=== PATIENT | male | born 1960 | race Caucasian/White ===

== ENCOUNTER 2021-09-09 10:54 | Outpatient (CLI) | payer OTHER, SELFPAY | END 2021-09-09 10:55 | disposition home or self-care (01) | LOC: ANHAUDIO 10:55 | PROVIDERS: PCP Family Medicine; Visit Provider Otolaryngology | DX: H90.3 Sensorineural hearing loss, bilateral (principal) | CPT/HCPCS: 92557; 92567 ==

== ENCOUNTER 2023-05-29 12:48 | Outpatient (CLI) | payer OTHER, SELFPAY ==
--- NOTE | ~2023-05-29 | XR_ITS ---
EXAMINATION: XR abdomen/kub 1V DATE: 05/29/2023 13:05 INDICATION: Gross hematuria. TECHNIQUE: A supine view of the abdomen on 2 radiographs was obtained. COMPARISON: CT abdomen and pelvis 05/29/2023 FINDINGS: There are no dilated loops of bowel. There are phleboliths in the pelvis. IMPRESSION: 1. No urolithiasis. Reviewed, dictated and finalized at location A. IMPRESSION: 1. No urolithiasis.
--- NOTE | ~2023-05-29 | CT_ITS ---
EXAMINATION: CT abdomen pelvis wo/w con DATE: 05/29/2023 13:36 INDICATION: Gross hematuria. TECHNIQUE: Computed tomography (CT) of the abdomen and pelvis was performed without and with intraven ous contrast using a total of 130 mL Omnipaque-350 intravenous contrast with a double-bolus technique for simultaneous opacification of the renal parenchyma and renal collecting system. Automated exposu re control and iterative reconstruction technique were employed. The dose-length product was 2025.85 mGy-cm. COMPARISON: Pelvis CT 02/12/2018 FINDINGS: The visualized portions of the lung bases demonstrate mild atelectasis. There is a pneumatocele in ri ght lower lobe. No pleural effusion. The heart size is normal. No pericardial effusion. There is a 5 mm cyst in the liver. The gallbladder, spleen, pancreas, and adrenal glands are normal. There are cys ts in the kidneys measuring up to 15 mm on the right. There is a 7 mm hemorrhagic cyst in left kidney . There is no urolithiasis. The ureters are well opacified and are normal. The bladder is normal. The prostate is moderately enlarged. There is a right inguinal hernia containing fat. There is diverticu losis of the colon without evidence of diverticulitis. The appendix is normal. There are no pathologi anna enlarged lymph nodes. There is no ascites. There is moderate thoracic spondylosis and mild lumb ar spondylosis. IMPRESSION: 1. No specific etiology for hematuria. Reviewed, dictated and finalized at location A.
[2023-05-29 13:19] LABS: Estimated Glomerular Filt Rate > 60
== END 2023-05-29 12:49 | disposition home or self-care (01) ==
PROVIDERS: PCP Family Medicine; Visit Provider Urology
DX: R31.0 Gross hematuria (principal)
CPT/HCPCS: 74018; 74178; Q9967

== ENCOUNTER 2024-04-29 14:38 | Outpatient (CLI) | payer MEDICARE, SELFPAY ==
[2024-04-29 18:38] LABS: Creatinine Urine 176.7 mg/dL
[2024-04-29 18:43] LABS: Microalbumin Urine Random 14.1 mg/L (0-16.7)
== END 2024-04-29 14:39 | disposition home or self-care (01) ==
LOC: ANHGOSHLAB 14:40
PROVIDERS: PCP Family Medicine; Visit Provider Nurse Practitioner Family
DX: E11.9 Type 2 diabetes mellitus without complications (principal)
CPT/HCPCS: 82043

== ENCOUNTER 2024-08-15 11:00 | Outpatient (CLI) | payer MEDICARE, SELFPAY ==
--- NOTE | ~2024-08-15 | MR_ITS ---
EXAMINATION: MR lumbar spine wo con DATE: 08/15/2024 11:57 INDICATION: Low back pain. Lumbar radiculopathy. TECHNIQUE: Magnetic resonance imaging (MRI) of the lumbar spine was performed without intravenous con trast. Sequences included sagittal T2-weighted FSE, sagittal T2-weighted FS FSE, sagittal T1-weighted FSE, and axial T2-weighted FSE. COMPARISON: None FINDINGS: Alignment is normal. Vertebral body heights are normal. Intervertebral disc heights are nor mal. The distal spinal cord signal intensity is normal. The conus medullaris is at L1-L2. The followi ng disc levels are specifically discussed: L1-L2: The disc does not extend beyond the endplate margin. There is mild bilateral facet joint osteo arthritis. There is no neural foraminal stenosis. There is no central canal stenosis. L2-L3: The disc is mildly bulging. There is mild bilateral facet joint osteoarthritis. There is mild right neural foraminal stenosis. There is mild central canal stenosis. L3-L4: The disc is mildly bulging. There is mild bilateral facet joint osteoarthritis. There is mild bilateral neural foraminal stenosis. There is no central canal stenosis. L4-L5: The disc is bulging and has an annular fissure. There is severe bilateral facet joint osteoart hritis. There is moderate bilateral neural foraminal stenosis. There is mild central canal stenosis. L5-S1: The disc is bulging and has an annular fissure. There is severe bilateral facet joint osteoart hritis. There is mild bilateral neural foraminal stenosis. There is mild central canal stenosis. IMPRESSION: 1. Moderate spondylosis at L4-L5 and mild spondylosis at other levels. Reviewed, dictated and finalized at location B.
== END 2024-08-15 11:01 | disposition home or self-care (01) ==
LOC: GOSHIMG 11:00
PROVIDERS: PCP Family Medicine; Visit Provider Nurse Practitioner Family
DX: M47.26 Other spondylosis with radiculopathy, lumbar region (principal)
CPT/HCPCS: 72148

== ENCOUNTER 2024-08-24 08:40 | Outpatient (CLI) | payer MEDICARE, SELFPAY ==
--- NOTE | ~2024-08-24 | MR_ITS ---
MR cervical spine wo con Ordering provider: Carlita Gil NP History: 64 years Male with . Radiculopathy, cervical region, weakness lower extremities . Comparison: None. Technique: MRI cervical spine without contrast. FINDINGS: CERVICAL SPINAL CORD/CRANIAL CERVICAL JUNCTION: Normal in signal and caliber. CERVICAL VERTEBRAL BODIES: Normal height and alignment. Normal marrow signal. DISK SPACES: Normal. C2-C3: No stenosis. C3-C4: No stenosis. Slight narrowing of the left intervertebral foramen. C4-C5: No stenosis. Narrowing of the left foramen with root compression. C5-C6: Mild spinal canal stenosis secondary to broad based disc bulge with central protrusion. Narro wing of the left intervertebral foramen with root compression. C6-C7: No stenosis. C7-T1: No stenosis. VISUALIZED PARASPINOUS SOFT TISSUES: Normal. IMPRESSION: 1. No acute osseous abnormality. 2. Multilevel disc bulges with variable degrees of spinal canal stenosis and intervertebral foramina l narrowing. Reviewed, dictated and finalized at location A. [employer] IMPRESSION: 1. No acute osseous abnormality. 2. Multilevel disc bulges with variable degrees of spinal canal stenosis and i ntervertebral foraminal narrowing.
== END 2024-08-24 08:41 | disposition home or self-care (01) ==
LOC: GOSHIMG 08:41
PROVIDERS: PCP Family Medicine; Visit Provider Nurse Practitioner Family
DX: M48.02 Spinal stenosis, cervical region (principal); M50.322 Other cervical disc degeneration at C5-C6 level
CPT/HCPCS: 72141

== ENCOUNTER 2025-05-02 09:17 | Emergency (ER) | payer MEDICARE, SELFPAY ==
--- OUTSIDE RECORDS SUMMARY | 2025-05-02 09:34 | XMS_ITS | Encounter Summary ---
Demographics Address [address] [place] [address] Home Phone Preferred Language Swedish Marital Status Anabaptism Affiliation Unknown Race White Ethnic Group Not or Lati no Author Organization [facility] Address [facility] [place] [address] Care Team Providers Care Marketing Summer Intern Name Role Phone Swapna Schuster MD Primary Care Provider Encounter Details Date Type Department Care Team (Late st Contact Info) Description 04/18/2021 Hospital Follow-up Call [facility] Telemetry Unit [address] [place], [place] [id number] Rimma Oconnell RN Social History Tobacco Use Types Packs/Day Years Used Date Smoking Tobacco: Never Smokeless Tobacco: Never Alcohol Use Standard Drinks/Week Comments Never 0 (1 standard drink = 0.6 oz pur e alcohol) Sex and Gender Information Value Date Recorded Sex Assigned at Not on file Legal Sex Male 6:34 PM CDT Gender Identity Not on file Sexual Orientation Not on file COVID-19 Exposure Response Date Recorded In the last month, have you been in contact with someone who was confirmed or suspected to have Coronavirus / COVID-19? No / Unsure 04/13/2021 7:46 PM CDT documented as of this encounter Functional Status * RETIRED Are you deaf or do you have serious difficulty hearing Answer Date of Assessment Author Status No 04/14/2021 4:00 AM CDT Activ e * RETIRED Are you blind or do you have serious difficulty seeing, even when wearing glasses? Answer Date of Assessment Author Status No 04/14/2021 4:00 AM CDT Activ e * Do you have serious difficulty walking or climbing stairs? Answer Date of Assessment Author Status No 04/14/2021 4:00 AM CDT Danay Ross RN Active * Do you have difficulty dressing or bathing? Answer Date of Assessment Author Status No 04/14/2021 4:00 AM CDT Danay Ross, RN Active * Because of a physical, mental, or emotional condition, do you have difficulty doing errands alone such as visiting a doctor's office or shopping? Answer Date of Assessment Author Status No 04/14/2021 4:00 AM CDT Danay Ross, RN Active documented as of this encounter Mental Status * Because of a physical, mental, or emotional condition, do you have serious difficulty concentrating, remembering, or making decisions? Answer Entry Date Author Status No 04/14/2021 4:00 AM CDT Danay Ross, RN Active documented in this encounter Plan of Treatment Not on file documented as of this encounter Goals Goal Patient Goal Type Associated Problems Recent Progress Patient-Stated? Author Health - patient able to perform ADLs independently General Marin Love RN documented as of this encounter Visit Diagnoses Not on filedocumented in this encounter Additional Health Concerns Infection Onset Date Last Indicated Resolved Time COVID-19 Confirmed 04/14/2021 04/14/2021 12:34 AM CDT documented as of this encounter Care Teams Marketing Summer Intern Relationship Specialty Start Date End Date Swapna Schuster MD [address] [place] [address] PCP - General FAMILY PRACTICE 04/13/21 documented as of this encounter
--- OUTSIDE RECORDS SUMMARY | 2025-05-02 09:34 | XMS_ITS | Clinical Summary ---
Demographics Address [address] [place] [address] Home Phone Preferred Language Malian Marital Status Protestant Affiliation Unknown Race White Ethnic Group Not or Lati no Author Organization [facility] Address [facility] [place] [address] Care Team Providers Care Net Web Application Developer Name Role Phone Swapna Schuster MD Primary Care Provider Allergies Active Allergy Reactions Criticality Noted Date Comments Codeine Dizziness 04/13/2021 Medications acyclovir 400 MG tablet Take 400 mg by mouth daily. 02/18/2021 Active Fenofibrate Micronized 130 MG Cap Take 130 mg by mouth daily. 03/11/2021 Active PARoxetine 20 MG tablet Take 20 mg by mouth daily. 03/27/2021 Active Active Problems Problem Noted Date Diagnosed Date COVID-19 04/15/2021 Vomiting 04/14/2021 Nystagmus 04/14/2021 Vertigo 04/14/2021 Dyslipidemia 04/14/2021 Recurrent major depressive disorder, in remissio n 04/14/2021 Hypoxia 04/14/2021 Family History Medical History Relation Comments Arthritis Father COPD Father Cancer Father Arthritis Mother Hyperlipidemia Mother Hypertension Sister Relation Status Comments Father Mother Sister Social History Tobacco Use Types Packs/Day Years Used Date Smoking Tobacco: Never Smokeless Tobacco: Never Alcohol Use Standard Drinks/Week Comments Never 0 (1 standard drink = 0.6 oz pur e alcohol) Sex and Gender Information Value Date Recorded Sex Assigned at Not on file Legal Sex Male 6:34 PM CDT Gender Identity Not on file Sexual Orientation Not on file Last Filed Vital Signs Vital Sign Reading Time Taken Comments Blood Pressure 124/84 04/17/2021 2:17 PM CDT Pulse 87 04/17/2021 2:17 PM CDT Temperature 37.2 C (99 F) 04/17/2021 2:17 PM CDT Respiratory Rate 16 04/17/2021 2:17 PM CDT Oxygen Saturation 98% 04/17/2021 2:17 PM CDT Inhaled Oxygen Concentration - - Weight 90.8 kg (200 lb 2.8 oz) 04/16/2021 5:30 A M CDT Height 175.3 cm (5' 9) 04/13/2021 7:48 PM CDT Body Mass Index 29.56 04/13/2021 7:48 PM CDT Plan of Treatment Health Maintenance Due Date Last Done Comments Colorectal Cancer Screening Colonoscopy (10 Years) 1958 Hepatitis C 1976 DTaP, Tdap and Td Vaccines ( 1 - Tdap) 1977 Pneumococcal Vaccine: 50+ Ye ars (1 of 1 - PCV) 2008 Zoster Vaccines (1 of 2) 2008 COVID-19 Vaccine (1 - 2023-2 5 season) 2024 RSV Immunization or 60+ Years (1 - 1-dose 75+ series) 2033 Meningococcal B Vaccine Aged Out No l onger eligible based on patient's age to complete this topic Meningococcal Vaccine Aged Out No shalini annamarie eligible based on patient's age to complete this topic RSV Immunizations Under 20 Months Aged Out No longer eligible based on patient's age to complete this topic Goals Goal Patient Goal Type Associated Problems Recent Progress Patient-Stated? Author Health - patient able to perform ADLs independently General No Marin Wellington, RN Insurance [employer] Advance Directives * Full Code (Latest Code Status on File) Date Activated Date Inactivated Comments 04/14/2021 1:54 AM 04/17/2021 5:09 PM Care Teams Net Web Application Developer Relationship Specialty Start Date End Date Swapna Schuster MD [address] [place] [address] PCP - General FAMILY PRACTICE 04/13/21
[2025-05-02 09:38] VITALS: BP 130/76; PULSE 98; RESP 18; TEMP 36.4; O2SAT 98
[2025-05-02 09:55] LABS: EDCOVIDSCREEN Positive (Negative); EDINFLUASCREEN Negative (Negative); EDINFLUBSCREEN Negative (Negative)
--- NOTE | 2025-05-02 10:50 | ED_ITS ---
HPI - General Adult General Chief complaint: Upper Respiratory Infection Stated complaint: weakness/sweating Source: patient Mode of arrival: ambulatory Limitations: no limitations History of Present Illness HPI narrative: Patient presents for evaluation of sick symptoms for the last 2 days. Symptoms include fever, fatigue, weakness, shortness of breath and nausea. He denies any vomiting, diarrhea, and cough. He spent time with family on the day of his symptom onset. Several family members were sick at that time. He does not smoke. He has not taken any medication to assist with the symptoms. Related Data Home Medications ?Medication ?Instructions ?Recorded ?Confirmed ?Last Taken ?Type mecobalamin (vitamin B12) 1,000 1,000 mcg PO DAILY 08/26/24 05/02/25 Unknown History mcg chewable tablet Allergies Allergy/AdvReac Type Severity Reaction Status Date / Time codeine AdvReac Intermediate Chills Verified 05/02/25 09:41 Review of Systems Review of Systems: CONSTITUTIONAL: Reports feet and fatigue. EYES: Denies visual changes, redness, or discharge. ENT: Denies rhinorrhea, congestion, sore throat, or otalgia. CARDIOVASCULAR: Denies chest pain, palpitations, or edema. RESPIRATORY: Denies cough or dyspnea. GASTROINTESTINAL: Denies abdominal pain, nausea, vomiting, or diarrhea. GENITOURINARY: Denies dysuria or hematuria. SKIN: Denies rash or itching. MUSCULOSKELETAL: Denies back pain, joint pain, or myalgia. NEUROLOGIC: Reports weakness. Denies headache, numbness, and dizziness. PSYCHIATRIC: Denies anxiety or depression. [facility] Past Medical History Medical History (Updated 05/02/25 @ 09:57 by Stanley Hernandez, [facility], ) 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 mellitus with diabetic neuropathy (~11/2022) Chronic neck and back pain BPPV (benign paroxysmal positional vertigo) COVID-19 determined by clinical diagnostic criteria (~04/2021) Lumbar radiculopathy Cervical radiculopathy Erectile dysfunction Recurrent genital herpes Depression Carpal tunnel syndrome Dyslipidemia Surgical History Surgical History (Reviewed 01/27/25 @ 13:59 by Kiesha Almonte, [facility]) Hx of cataract extraction (~06/2024) History of hernia surgery (~1999) 2000 [place]le teeth extracted History of carpal tunnel surgery 1998 and 2011 Family History Family History Father Diabetes mellitus Sibling Diabetes mellitus Grandparent Family history of cardiovascular disease Other Cancer Cerebrovascular accident Depression Family history of coronary artery disease Hypertension Social History Social History (Reviewed 01/27/25 @ 13:59 by Kiesha Almonte [facility]) Smoking status: Never smoker Second hand tobacco smoke exposure: Yes Alcohol intake: former Alcohol use details: stopped drinking in 08/13/1988 Substance use: never Substance use type: does not use Lack of Transportation: No Lack of Food: Never True Current Housing: I Have Housing Concerned About Future Housing: No Difficulty Paying Gas/Electric Bills: No Difficulty Paying for Meds: No Currently Unemployed: No Education: High School Diploma/GED Difficulty w/ Childcare or Family Care: No Living arrangements: alone Occupation/Education: occupation Gender identity (if verbalized by the patient): Male Agree to blood products: Yes Course Course Emergency Course: This is a 64-year-old male who presented for evaluation of sick symptoms. Rapid flu negative. COVID positive. Advised on supportive care measures. Through shared decision making opted to forego Paxlovid. Increase fluids. Follow up with primary care provider. Go to the ER for worsening symptoms. Pt in agreement with plan of care. Level of Care: Express Care Visit Vital Signs Vital signs: Vital Signs Temperature 36.4 C 05/02/25 09:38 Pulse Rate 98 05/02/25 09:38 Respiratory Rate 18 05/02/25 09:38 Blood Pressure 130/76 05/02/25 09:38 Pulse Oximetry 98 05/02/25 09:38 Oxygen Delivery Room Air 05/02/25 09:38 Temperature 36.4 C 05/02/25 09:38 Pulse Rate 98 05/02/25 09:38 Respiratory Rate 18 05/02/25 09:38 Blood Pressure 130/76 05/02/25 09:38 Pulse Oximetry 98 05/02/25 09:38 Oxygen Delivery Room Air 05/02/25 09:38 Medical Decision Making Vital Signs Vital Signs: Vital Signs Temperature 36.4 C 05/02/25 09:38 Pulse Rate 98 05/02/25 09:38 Respiratory Rate 18 05/02/25 09:38 Blood Pressure 130/76 05/02/25 09:38 Pulse Oximetry 98 05/02/25 09:38 Oxygen Delivery Room Air 05/02/25 09:38 Temperature 36.4 C 05/02/25 09:38 Pulse Rate 98 05/02/25 09:38 Respiratory Rate 18 05/02/25 09:38 Blood Pressure 130/76 05/02/25 09:38 Pulse Oximetry 98 05/02/25 09:38 Oxygen Delivery Room Air 05/02/25 09:38 Lab Data Labs: Lab Results 05/02/25 Range/Units 09:52 POC Influenza A Ag Negative (Negative) POC Influenza B Ag Negative (Negative) POC SARS CoV-2 Ag Positive (Negative) Discharge Plan Discharge Clinical Impression: COVID Patient Disposition: Home Condition: Stable Instructions: Antibiotic Form, COVID-19 (Coronavirus Disease 2019) (ED) Patient Language: Djiboutian Prescriptions: New ondansetron 4 mg tablet,disintegrating 4 mg PO Q8H PRN (Reason: nausea and vomiting) Qty: 15 0RF No Action (DME) FreeStyle Brittany 3 Sensor Device See Rx Instructions .Route Qty: 6 1RF Rx Instructions: As directed mecobalamin (vitamin B12) 1,000 mcg tablet,chewable 1,000 mcg PO DAILY glimepiride 1 mg tablet 1 mg PO QAM Qty: 90 3RF Rx Instructions: administer with breakfast acyclovir 400 mg tablet 400 mg PO BID Qty: 180 1RF tamsulosin 0.4 mg capsule See Rx Instructions .ROUTE .COMPLEX Qty: 100 2RF Dose Instruction: TAKE 1 CAPSULE BY MOUTH DAILY Rx Instructions: TAKE 1 CAPSULE BY MOUTH DAILY atorvastatin 10 mg tablet See Rx Instructions .ROUTE .COMPLEX Qty: 100 1RF Dose Instruction: TAKE 1 TABLET BY MOUTH DAILY AT BEDTIME Rx Instructions: TAKE 1 TABLET BY MOUTH DAILY AT BEDTIME fenofibrate 160 mg tablet See Rx Instructions .ROUTE .COMPLEX Qty: 100 1RF Dose Instruction: TAKE 1 TABLET BY MOUTH DAILY Rx Instructions: TAKE 1 TABLET BY MOUTH DAILY Follow-up/Referrals: Darlene Schuster MD [Primary Care Provider] - Stand Alone Forms: Work/School Release IP Time of Disposition: 09:58
== END 2025-05-02 10:01 | disposition home or self-care (01) ==
PROVIDERS: Emergency Provider Nurse Practitioner; PCP Family Medicine
DX: U07.1 COVID-19 (principal); E11.42 Type 2 diabetes mellitus with diabetic polyneuropathy; Z79.84 Long term (current) use of oral hypoglycemic drugs; E78.5 Hyperlipidemia, unspecified
CPT/HCPCS: 87426; 87804; 99213; G0463

== ENCOUNTER 2025-08-01 09:12 | Emergency (ER) | payer MEDICARE, SELFPAY ==
[2025-08-01 09:19] VITALS: BP 147/81; PULSE 81; RESP 18; TEMP 36.3; O2SAT 98
[2025-08-01 09:29] LABS: EDUAAPPEAR Clear; EDUABILI Negative (Negative); EDUABLOOD Negative (Negative); EDUACOLOR1 Yellow; EDUAGLUCOSE Negative (Negative); EDUAKETONE Negative (Negative); EDUALEUKO Negative (Negative); EDUANITRATE Negative (Negative); EDUAPH 6.0; EDUAPROTEIN Negative (Negative); EDUASPGRAVITY 1.020; EDUAUROBILI 0.2
--- NOTE | 2025-08-01 09:34 | ED.MALEGU ---
HPI - Male Genitourinary General Chief complaint: Urogenital-Male Stated complaint: UTI Time Seen by Provider: 08/01/25 09:39 Source: patient, RN notes reviewed and old records reviewed Mode of arrival: ambulatory Limitations: no limitations History of Present Illness HPI Narrative: 65-year-old male presents to the [facility] with concerns for blood in his urine that started Thursday. Reports low abdominal, suprapubic pain, frequency with urination. Denies any burning with urination. Currently on Flomax. Has a history of an enlarged prostate, has an appointment with Urology on Thursday, biopsy possibly. Denies any CVA tenderness. No low back pain. Denies fevers Onset (ago): day(s) (2) Related Data Home Medications ?Medication ?Instructions ?Recorded ?Confirmed ?Last Taken ?Type mecobalamin (vitamin B12) 1,000 1,000 mcg PO DAILY 08/26/24 08/01/25 Unknown History mcg chewable tablet Allergies Allergy/AdvReac Type Severity Reaction Status Date / Time codeine AdvReac Intermediate Chills Verified 08/01/25 09:24 Review of Systems Review of Systems: All systems reviewed & are unremarkable except as noted in HPI and below Constitutional: Constitutional: Reports no additional constitutional complaints Gastrointestinal: Gastrointestinal: Reports as per HPI Genitourinary: Genitourinary: Reports as per HPI Musculoskeletal: Musculoskeletal: Reports no additional musculoskeletal complaints PMFSH Past Medical History Medical History 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 mellitus with diabetic neuropathy (~11/2022) Chronic neck and back pain BPPV (benign paroxysmal positional vertigo) COVID-19 determined by clinical diagnostic criteria (~04/2021) Lumbar radiculopathy Cervical radiculopathy Erectile dysfunction Recurrent genital herpes Depression Carpal tunnel syndrome Dyslipidemia Surgical History Surgical History Hx of cataract extraction (~06/2024) History of hernia surgery (~1999) 2000 [place] teeth extracted History of carpal tunnel surgery 1998 and 2011 Family History Family History Father Diabetes mellitus Sibling Diabetes mellitus Grandparent Family history of cardiovascular disease Other Cancer Cerebrovascular accident Depression Family history of coronary artery disease Hypertension Social History Social History Smoking status: Never smoker Second hand tobacco smoke exposure: Yes Alcohol intake: former Alcohol use details: stopped drinking in 08/13/1988 Substance use: never Substance use type: does not use Lack of Transportation: No Lack of Food: Never True Current Housing: I Have Housing Concerned About Future Housing: No Difficulty Paying Gas/Electric Bills: No Difficulty Paying for Meds: No Currently Unemployed: No Education: High School Diploma/GED Difficulty w/ Childcare or Family Care: No Living arrangements: alone Occupation/Education: occupation Gender identity (if verbalized by the patient): Male Agree to blood products: Yes Comments At the time of my signature, I reviewed and agree with the nursing past medical, surgical, social, and family history. There is no relevant family history pertinent to the patient complaint. Exam Const: General: cooperative, healthy appearing, comfortable, no acute distress, well developed, alert and well nourished Nutritional Appearance: well nourished Orientation/consciousness: patient oriented x3 Limitations: no limitations HENMT: Head: normal to inspection Eyes: General: appearance normal, both eyes and all related structures Alignment and Position: alignment normal Neck: Neck: normal visual inspection, full ROM, no lymphadenopathy and no meningeal signs Chest: Chest palpation & inspection: normal inspection of the chest Resp: Effort & Inspection: normal respiratory effort and able to speak in complete sentences Auscultation: clear to auscultation bilaterally, no crackles, no rales, no rhonchi and no wheezes Cardio: Rate: regular rate GI: GI Palp: Yes Soft to palpation, No Guarding due to palpation present (GI), No Rigid due to palpation, No Rebound tenderness present and Yes Other GI palpation findings present (Suprapubic pressure) Auscultation: normal bowel sounds : General: Yes no CVA tenderness Skin: General skin exam: normal color and no rashes or lesions noted Neuro: General: patient oriented x3, gait normal, moves all extremities and no meningeal signs Cognition (Neuro): normal cognition Speech: normal speech Gait exam (Neuro): Normal gait present Extrem: General: normal to inspection, full ROM, capillary refill normal and normal gait Psych: Appearance: grossly normal and well kempt Mental Status: mental status grossly normal Speech and movement: Normal speech and movement present and Clear speech present Affect: normal affect Attitude: cooperative Course Course Level of Care: Express Care Visit Vital Signs Vital signs: Vital Signs Temperature 97.3 F L 08/01/25 09:19 Pulse Rate 81 08/01/25 09:19 Respiratory Rate 18 08/01/25 09:19 Blood Pressure 147/81 H 08/01/25 09:19 Pulse Oximetry 98 08/01/25 09:19 Oxygen Delivery Room Air 08/01/25 09:19 Temperature 97.3 F L 08/01/25 09:19 Pulse Rate 81 08/01/25 09:19 Respiratory Rate 18 08/01/25 09:19 Blood Pressure 147/81 H 08/01/25 09:19 Pulse Oximetry 98 08/01/25 09:19 Oxygen Delivery Room Air 08/01/25 09:19 Reviewed MDM - Male Genitourinary MDM Narrative Medical decision making narrative: Patient sitting in exam room. Patient is nontoxic, vitals stable. Patient presents with suprapubic pressure, blood in urine on Thursday. Urine shows no signs of infection or blood in the urine on the urine dip. No culture indicated. Patient has an appointment with Urology on Thursday, known enlarged prostate. Patient in no acute distress, discussed in detail signs and symptoms to proceed to the emergency room to include increasing pain, gross hematuria. Patient verbalized understanding Discharge instructions reviewed with patient, as well as provided in writing per nursing staff. The instructions also include specific and strict return/GO TO THE ER as well as f/u information. All questions have been answered, and the patient deny any further questions with discharge and discharge plan. Some parts of this dictation were generated by voice recognition software and may contain typographical and/or grammatical inaccuracies. Differential Diagnosis Differential diagnosis: Likely urinary tract infection, urethritis, prostatitis and acute retention of urine Lab Data Labs: Lab Results 08/01/25 Range/Units 09:25 POC Urine Color Yellow POC Urine Clarity Clear POC Urine pH 6.0 POC Ur Specif [place] 1.020 POC Urine Protein Negative (Negative) POC Ur Glucose (UA) Negative (Negative) POC Urine Ketones Negative (Negative) POC Urine Blood Negative (Negative) POC Urine Nitrite Negative (Negative) POC Urine Bilirubin Negative (Negative) POC Urine Urobilinogen 0.2 POC U Leukocyte Esteras Negative (Negative) Reviewed Critical Care Time Critical Care Time Critical Care Time: No Discharge Plan Discharge Clinical Impression: Abdominal pain, suprapubic, Enlarged prostate Patient Disposition: Home Condition: Stable Instructions: Enlarged Prostate (BPH) (ED), Abdominal Pain (ED) Additional Instructions: Follow-up as already scheduled with your urologist on Thursday Take Tylenol as needed for pain If the symptoms get worse please proceed to the nearest emergency room Patient Language: Czech Prescriptions: No Action ondansetron 4 mg tablet,disintegrating 4 mg PO Q8H PRN (Reason: nausea and vomiting) Qty: 15 0RF (DME) FreeStyle [place] 3 Sensor Device See Rx Instructions .Route Qty: 6 1RF Rx Instructions: As directed mecobalamin (vitamin B12) 1,000 mcg tablet,chewable 1,000 mcg PO DAILY tamsulosin 0.4 mg capsule See Rx Instructions .ROUTE .COMPLEX Qty: 100 2RF Dose Instruction: TAKE 1 CAPSULE BY MOUTH DAILY Rx Instructions: TAKE 1 CAPSULE BY MOUTH DAILY glimepiride 1 mg tablet 1 mg PO QAM Qty: 90 1RF Rx Instructions: administer with breakfast acyclovir 400 mg tablet 400 mg PO BID Qty: 180 1RF fenofibrate 160 mg tablet See Rx Instructions .ROUTE .COMPLEX Qty: 100 1RF Dose Instruction: TAKE 1 TABLET BY MOUTH DAILY Rx Instructions: TAKE 1 TABLET BY MOUTH DAILY atorvastatin 10 mg tablet See Rx Instructions .ROUTE .COMPLEX Qty: 100 1RF Dose Instruction: TAKE 1 TABLET BY MOUTH DAILY AT BEDTIME Rx Instructions: TAKE 1 TABLET BY MOUTH DAILY AT BEDTIME Follow-up/Referrals: Darlene Schuster MD [Primary Care Provider, Family Practice] - 1 Week Clinical Impression: Enlarged prostate; Abdominal pain, suprapubic Stand Alone Forms: Work/School Release IP Time of Disposition: 09:47
== END 2025-08-01 09:48 | disposition home or self-care (01) ==
PROVIDERS: Emergency Provider Nurse Practitioner; PCP Family Medicine
DX: R10.30 Lower abdominal pain, unspecified (principal); N40.0 Benign prostatic hyperplasia without lower urinary tract symptoms; E11.42 Type 2 diabetes mellitus with diabetic polyneuropathy; Z79.84 Long term (current) use of oral hypoglycemic drugs; E78.5 Hyperlipidemia, unspecified; Z86.16 Personal history of COVID-19
CPT/HCPCS: 81003; 99212; G0463

== ENCOUNTER 2025-09-07 14:01 | Outpatient (CLI) | payer MEDICARE, SELFPAY ==
--- NOTE | ~2025-09-07 | US_ITS ---
EXAMINATION: Noninvasive lower extremity arterial evaluation including pressure indices: DATE: 09/07/2025. INDICATION: 65-year-old with peripheral vascular disease. TECHNIQUE: Noninvasive lower extremity arterial evaluation with segmental pressure measurements and pressure index measurements at rest. COMPARISON: None. FINDINGS: Ankle brachial pressure index on the right measures 1.15 and on the left 1.08. Toe brachial index of 0.89 on the right and 0.79 on the left. Segmental pressure measurements are symmetrical between the 2 sides. IMPRESSION: 1. There is no evidence to suggest hemodynamically significant lower extremity arterial disease at the femoral and popliteal levels, on this screening examination at rest. Reviewed, dictated and finalized at location [facility]. [facility] IMPRESSION: 1. There is no evidence to suggest hemodynamically significant lower extremity arterial disease at the femoral and popliteal levels, on this screening examina tion at rest.
== END 2025-09-07 14:02 | disposition home or self-care (01) ==
PROVIDERS: PCP Family Medicine; Visit Provider Family Medicine
DX: I73.9 Peripheral vascular disease, unspecified (principal)
CPT/HCPCS: 93923

== ENCOUNTER 2025-10-04 13:58 | Outpatient (CLI) | payer MEDICARE, SELFPAY ==
--- NOTE | ~2025-10-04 | MR_ITS ---
EXAM/PROCEDURE: MR lumbar spine wo con HISTORY: M54.16 - Radiculopathy, lumbar region COMPARISON: None available. TECHNIQUE: Multiplanar lumbar spine MRI without contrast FINDINGS: Degenerative changes present throughout the lumbar spine involving disc spaces and posterior elements. The conus tapers normally at L1. No acute or aggressive bony or soft tissue process seen. Level specific findings as follows: T12-L1: Mild degenerative change L1-2: Mild degenerative change L2-3: Mild degenerative change L3-4: Slightly more advanced facet hyperostosis, posterior spondylosis and thickening of ligamentum flavum resulting in borderline stenosis in the lateral recesses and mild to moderate bilateral neural foraminal narrowing. No spinal canal stenosis or discrete disc protrusion. L4-5: More advanced degenerative disc and facet changes with increased thickening of ligamentum flavum. Small amount of fluid in the left facet joint. Borderline spinal canal stenosis at this level with mild stenosis in the lateral recesses. Moderately severe bilateral neural foraminal narrowing. L5-S1: Moderately severe degenerative disc and facet changes also present at this level with moderately severe bilateral neural foraminal narrowing. No spinal canal stenosis or discrete disc protrusion. IMPRESSION: Multilevel degenerative changes most advanced at L4-5 and L5-S1 involving the discs and posterior elements as detailed above. Reviewed, dictated and finalized at location [facility]. [facility] IMPRESSION: Multilevel degenerative changes most advanced at L4-5 and L5-S1 involving the d iscs and posterior elements as detailed above.
--- OUTSIDE RECORDS SUMMARY | 2025-10-04 16:36 | XMS_ITS | Clinical Summary ---
Demographics Address [address] [place] [address] Home Phone Preferred Language Indian Marital Status Yazidism Affiliation Unknown Race White Ethnic Group Not or Lati no Author Organization [facility] Address [facility]ly [facility] [place] [address] Care Team Providers Care Engine Buildup Mechanic Name Role Phone Swapna Schuster MD Primary [...] disorder, in remissio n 04/14/2021 Hypoxia 04/14/2021 Encounters Date Type Department Care Team Description 09/29/2025 12:45 PM SOFTWARE QUALITY ASSURANCE SPECIALIST Office Visit [facility] [address] [place] [phone] Carlita Gil FNP Johnson, Jennifer N, DPT Spinal Stenosis 09/29/2025 Travel 09/18/2025 2:30 PM SOFTWARE QUALITY ASSURANCE SPECIALIST Office Visit [facility] [address] [place] [id number] Carlita Gil FNP Johnson, Jennifer N, JOSE Spinal Stenosis 09/18/2025 Travel 09/15/2025 9:30 AM SOFTWARE QUALITY ASSURANCE SPECIALIST Office Visit [facility] [address] [place] [phone] Carlita Gil FNP Johnson, Jennifer N, DPT Spinal Stenosis 09/15/2025 Travel 09/13/2025 2:00 PM SOFTWARE QUALITY ASSURANCE SPECIALIST Office Visit [address] [address] Carlita Gil, Esmer Vazquez, DPT Spinal Stenosis 09/13/2025 Travel 09/04/2025 11:45 AM SOFTWARE QUALITY ASSURANCE SPECIALIST Office Visit [facility] [address] [address] Carlita Gil FNP Johnson, Jennifer N, DPT Spinal Stenosis 09/04/2025 Travel 09/01/2025 12:45 PM SOFTWARE QUALITY ASSURANCE SPECIALIST Office Visit [facility] [address] [address] Carlita Gil, Yessenia Ibanez, CLINICAL PSYCHOLOGIST Back Pain 09/01/2025 Travel 08/30/2025 9:00 AM SOFTWARE QUALITY ASSURANCE SPECIALIST Office Visit [address] [address] Carlita Gil FNP Johnson, Jennifer N, DPT Spinal Stenosis 08/30/2025 Travel from Last 3 Months Family History Medical History Relation Comments Arthritis [...] 04/13/2021 7:48 PM CDT Plan of Treatment Upcoming Encounters Date Type Department Care Team (Late st Contact Info) Description 10/06/2025 11:00 AM SOFTWARE QUALITY ASSURANCE SPECIALIST Office Visit [facility] [place] [place] [address] [address] [place] [address] Yessenia Cartwright PTA 10/09/2025 3:15 PM SOFTWARE QUALITY ASSURANCE SPECIALIST Office Visit [facility] [address] [place] [address] [address] [place] [address] Esmer Spaulding, DPT [address] [place] [address] Health Maintenance Due Date Last Done Comments Colorectal Cancer Screening Colonoscopy (10 Years) 1960 Hepatitis C 1976 Pneumococcal Vaccine: 50+ Ye ars (1 of 1 - PCV) 2008 Zoster Vaccines (1 of 2) 2008 DTaP, Tdap and Td Vaccines ( 2 - Td or Tdap) 11/01/2020 11/01/2010 Annual Medicare Wellness Visit 2023 COVID-19 Vaccine (1 - 2024-2 6 season) 2025 Influenza Adult (#1) 2025 08/01/2019 RSV Immunization or 60+ Years (1 - 1-dose 75+ series) 2033 Hepatitis A Vaccines Aged Out No long er eligible based on patient's age to complete this topic Meningococcal B Vaccine Aged Out No l [...] independently General No Marin Wellington, RN Insurance * Guarantor: Corey Knowles II Account Type Relation to Patient Date of Phone Billing Address Personal/Family Self 1960 [id number] [place] [address] UHC MEDICARE Advance Directives * Full Code (Latest Code Status on File) Date Activated Date Inactivated Comments 04/14/2021 1:54 AM 04/17/2021 5:09 PM Care Teams Engine Buildup Mechanic Relationship Specialty Start Date End Date Swapna Schuster MD [address] [place] [address] PCP - General FAMILY PRACTICE 04/13/21
--- OUTSIDE RECORDS SUMMARY | 2025-10-04 16:36 | XMS_ITS | Encounter Summary ---
Demographics Address [address] [place] [address] Home Phone Preferred Language Marshallese Marital Status Islam Affiliation Unknown Race White Ethnic Group Not or Lati no Author Organization [facility] Address [facility] [place] [address] Care Team Providers Care Human Resources Temp Name Role Phone Swapna Schuster MD Primary Care Provider Encounter Details Date Type Department Care Team (Late st Contact Info) Description 04/18/2021 Hospital Follow-up Call [facility] Telemetry Unit [address] [place], [place] [id number] Rimma Oconnell RN Social History Tobacco Use [...] documented in this encounter Plan of Treatment Upcoming Encounters Date Type Department Care Team (Late st Contact Info) Description 10/06/2025 11:00 AM BRAILLE OPERATOR Office Visit [address] [address] [place] [address] Yessenia Cartwright PTA 10/09/2025 3:15 PM BRAILLE OPERATOR Office Visit [facility] [address] [address] [address] [place] [address] Esmer Spaulding, DPT [address] [place] [address] documented as of this encounter Goals Goal [...] documented as of this encounter Care Teams Human Resources Temp Relationship Specialty Start Date End Date Swapna Schuster MD [address] [place] [address] PCP - General FAMILY PRACTICE 04/13/21 documented as of this encounter
== END 2025-10-04 13:59 | disposition home or self-care (01) ==
PROVIDERS: PCP Family Medicine; Visit Provider Nurse Practitioner Adult Health
DX: M48.061 Spinal stenosis, lumbar region without neurogenic claudication (principal); M47.896 Other spondylosis, lumbar region; M47.897 Other spondylosis, lumbosacral region
CPT/HCPCS: 72148